=== PATIENT | female | born 1970 | race Caucasian/White ===

== ENCOUNTER → 2020-08-08 14:24 | Outpatient (BNVA) | payer BC, SELFPAY | PROVIDERS: PCP Physician Assistant; Visit Provider Surgery Vascular Surgery | DX: Z76.89 Persons encountering health services in other specified circumstances (principal) ==

== ENCOUNTER 2020-08-19 08:10 | Outpatient (REF) | payer BC, SELFPAY ==
--- NOTE | 2020-08-19 08:14 | US_ITS ---
EXAMINATION: RIGHT and LEFT LOWER EXTREMITY VENOUS ULTRASOUND (Reflux Exam) CLINICAL INDICATION: leg pain and varicose veins. COMPARISON: None. TECHNIQUE: Color flow triplex imaging and compression Doppler was performed to evaluate both the deep and the superficial systems bilaterally. To evaluate the superficial system, the examination was performed in the upright position. Color-flow Doppler ultrasound and compression ultrasound were utilized. In addition, maneuvers were utilized to demonstrate reflux. FINDINGS: 1. DEEP VENOUS ULTRASOUND OF THE RIGHT LOWER EXTREMITY: Respiratory variation, normal compression and augmented flow are noted in the right common femoral vein as well as the right popliteal vein and there is no evidence of deep venous thrombosis at these locations. There is no evidence of reflux in the deep system in either the common femoral vein or the popliteal vein. There is no evidence of a Cervantes's cyst. 2. SUPERFICIAL ULTRASOUND WITH DOPPLER OF RIGHT LOWER EXTREMITY: The right great saphenous vein at the saphenofemoral junction measures 8 mm, at the mid thigh 5 mm, epplo-qoa-fkey 5 mm, aphmv-gzv-gtvl 5 mm, at mid calf 6 mm and at the ankle measures 3 mm. There is diffuse greater saphenous vein reflux measuring maximum 3.6 seconds in the mid thigh and at the knee. The right small saphenous vein measures 2 mm and shows no reflux. There are varicosities in the calf that measure 4 mm and demonstrate up to 3.3 seconds reflux. 3. DEEP VENOUS ULTRASOUND OF THE LEFT LOWER EXTREMITY: Respiratory variation, normal compression and augmented flow are noted in the left common femoral vein as well as the left popliteal vein and there is no evidence of deep venous thrombosis at these locations. There is no evidence of reflux in the deep system in either the common femoral vein or the popliteal vein. . There is no evidence of a Cervantes's cyst. 4. SUPERFICIAL ULTRASOUND WITH DOPPLER OF LEFT LOWER EXTREMITY: Left great saphenous vein at the saphenofemoral junction measures 6 mm, at the mid thigh 3 mm, lpnbh-awd-gzfo 3 mm, ppcld-rxe-oicc 2 mm, at mid calf 2 mm and at the ankle measures 2 mm. There is no reflux demonstrated in the left great saphenous vein. There is an accessory lateral greater saphenous vein that measures between 5 and 7 mm and demonstrates 2.1 to 2.4 seconds reflux. The left small saphenous vein measures 2 mm and shows no reflux. There are varicosities arising from the accessory saphenous vein in the lateral thigh, at the knee and proximal calf that measure 5, 6 and 3 mm and demonstrate 2.4, 3 and 2.2 seconds reflux. US/US venous duplex LE BI IMPRESSION: 1. No evidence of reflux or thrombus in the common femoral veins or popliteal veins bilaterally. 2. Extensive right greater saphenous vein reflux. No left greater saphenous vein reflux seen. Reflux in an accessory lateral greater saphenous vein and varicosities that communicate with the left accessory lateral greater saphenous vein demonstrate reflux.
== END 2020-08-19 08:11 | disposition home or self-care (01) ==
LOC: HO.US 08:10
PROVIDERS: Visit Provider Surgery Vascular Surgery
DX: I83.893 Varicose veins of bilateral lower extremities with other complications (principal); M79.605 Pain in left leg; M79.604 Pain in right leg
CPT/HCPCS: 93970

== ENCOUNTER → 2020-10-03 08:48 | Outpatient (BNVA) | payer BC, SELFPAY | PROVIDERS: PCP Physician Assistant; Visit Provider Surgery Vascular Surgery ==

== ENCOUNTER 2021-03-26 16:41 | Outpatient (REF) | payer BC, SELFPAY ==
[2021-03-26 17:44] LABS: Glucose Urine UA NEG (NEG); Leukocyte Esterase Urine NEG (NEG); Nitrite Urine NEG (NEG); Urine Blood NEG (NEG); Urine Ketones NEG (NEG); Urine Protein TRACE MG/DL (NEG-TRACE)
[2021-03-26 17:48] LABS: Appearance Urine CLEAR; Color Urine YELLOW
== END 2021-03-26 16:42 | disposition home or self-care (01) ==
LOC: HO.LAB 16:41
PROVIDERS: PCP Physician Assistant; Visit Provider Physician Assistant
DX: R30.0 Dysuria (principal)
CPT/HCPCS: 81003

== ENCOUNTER 2021-06-10 12:59 | Outpatient (REF) | payer BC, SELFPAY ==
[2021-06-10 13:32] LABS: Hematocrit 36.8 % (37-47); Hemoglobin 11.6 g/dl (12.0-16.0); Mean Corpuscular HGB Conc 31.5 g/dl (31.0-35.0); Mean Corpuscular Hemoglobin 29.5 pg (27.0-33.0); Mean Corpuscular Volume 93.6 fL (80-98); Mean Platelet Volume 9.5 fL (9.4-12.3); Platelet Count 274 X10*3/uL (160-400); Red Blood Count 3.93 X10*6/uL (4.20-5.50); Red Cell Distribution Width 13.6 % (11.0-16.0); White Blood Count 8.8 X10*3/uL (4.8-10.8)
[2021-06-10 13:50] LABS: Appearance Urine HAZY; Color Urine YELLOW; Glucose Urine UA NEG (NEG); Leukocyte Esterase Urine NEG (NEG); Nitrite Urine NEG (NEG); Specific Gravity - Urine >= 1.030 (1.005-1.025); Urine Blood NEG (NEG); Urine Ketones NEG (NEG); Urine Protein NEG (NEG-TRACE)
[2021-06-10 14:02] LABS: Alanine Aminotransferase 10 U/L (0-31); Albumin Level 4.5 g/dL (3.5-5.0); Alkaline Phosphatase 88 U/L (39-117); Anion Gap 12 (12-20); Aspartate Amino Transferase 17 U/L (5-31); Bilirubin Total 0.5 mg/dL (0.0-1.0); Blood Urea Nitrogen 15 mg/dL (9-16); Calcium 9.5 mg/dL (8.4-10.2); Carbon Dioxide 28 mmol/L (22-29); Chloride 105 mmol/L (96-108); Cholesterol 178 mg/dL; Estimated Glomerular Filt Rate > 60; Glucose Fasting 95 mg/dL (60-99); HDL Cholesterol 55 mg/dL; LDL Cholesterol Calculated 104 mg/dl; Potassium 4.8 mmol/L (3.3-5.1); Sodium 140 mmol/L (135-145); Total Protein 7.7 g/dL (6.5-8.0); Triglycerides 95 mg/dL
[2021-06-10 14:28] LABS: TSH reflex Free T4 1.59 uIU/mL (0.32-4.0)
== END 2021-06-10 13:00 | disposition home or self-care (01) ==
LOC: HO.LAB 12:59
PROVIDERS: PCP Physician Assistant; Visit Provider Physician Assistant
DX: Z13.220 Encounter for screening for lipoid disorders (principal); Z13.29 Encounter for screening for other suspected endocrine disorder; R30.0 Dysuria; I10 Essential (primary) hypertension
CPT/HCPCS: 36415; 80053; 80061; 81003; 84443; 85027

== ENCOUNTER 2021-08-06 08:02 | Outpatient (REF) | payer BC, SELFPAY ==
--- NOTE | ~2021-08-06 | MM_ITS ---
EXAMINATION: MM SCREENING DIGITAL BREAST TOMOSYNTHESIS, BILATERAL CLINICAL INFORMATION: Screening. Asymptomatic. The lifetime risk of breast cancer based on the Tyrer-Cuzick Model is 8%. COMPARISON: Mammography: 11/23/2016, 07/05/2015, 04/05/2014 TECHNIQUE: Digital breast tomosynthesis is performed in both the craniocaudal and mediolateral oblique views along with computer-aided detection (CAD). Synthesized 2D images are generated from the tomosynthesis. FINDINGS: There are scattered areas of fibroglandular density (ACR BI-RADS breast composition Category b). There are no significant masses, abnormal calcifications, or other abnormalities. Parenchymal pattern is similar to prior studies. Small nodular asymmetric density mid 9:00 right breast is decreased in size since 2015. No developing density in either breast. The skin contours are smooth. MM/MM tomosynthesis screening BI IMPRESSION: No mammographic evidence of malignancy. ASSESSMENT: BI-RADS 2: Benign RECOMMENDATION: Routine annual mammography screening. This patient's information was entered into a reminder system with a target due date for their next mammogram.
== END 2021-08-06 08:03 | disposition home or self-care (01) ==
LOC: HO.MAMMO 08:02
PROVIDERS: Visit Provider Physician Assistant
DX: Z12.31 Encounter for screening mammogram for malignant neoplasm of breast (principal)
CPT/HCPCS: 77063; 77067

== ENCOUNTER 2022-08-12 07:54 | Outpatient (REF) | payer BC, SELFPAY ==
--- NOTE | ~2022-08-12 | MM_ITS ---
EXAMINATION: MM SCREENING DIGITAL BREAST TOMOSYNTHESIS, BILATERAL CLINICAL INFORMATION: Screening. Asymptomatic. The lifetime risk of breast cancer based on the Tyrer-Cuzick Model is 6%. COMPARISON: Mammography: 08/06/2021, 11/23/2016, 07/05/2015 TECHNIQUE: Digital breast tomosynthesis is performed in both the craniocaudal and mediolateral oblique views along with computer-aided detection (CAD). Synthesized 2D images are generated from the tomosynthesis. FINDINGS: There are scattered areas of fibroglandular density (ACR BI-RADS breast composition Category b). There are no significant masses, abnormal calcifications, or other abnormalities. Parenchymal pattern is similar to prior studies. There is no developing density or architectural abnormality. The axilla and skin contours are unremarkable. No significant changes. MM/MM tomosynthesis screening BI IMPRESSION: No mammographic evidence of malignancy. ASSESSMENT: BI-RADS 1: Negative RECOMMENDATION: Routine annual mammography screening. This patient's information was entered into a reminder system with a target due date for their next mammogram.
[2022-08-12 08:57] LABS: Hematocrit 37.9 % (37.0-47.0); Hemoglobin 11.9 g/dl (12.0-16.0); Mean Corpuscular HGB Conc 31.4 g/dl (31.0-35.0); Mean Corpuscular Hemoglobin 29.5 pg (27.0-33.0); Mean Platelet Volume 9.9 fL (9.4-12.3); Platelet Count 267 X10*3/uL (160-400); Red Blood Count 4.03 X10*6/uL (4.20-5.50); Red Cell Distribution Width 13.6 % (11.0-16.0)
[2022-08-12 10:02] LABS: Alanine Aminotransferase 14 U/L (0-31); Albumin Level 4.5 g/dL (3.5-5.0); Alkaline Phosphatase 77 U/L (39-117); Anion Gap 12 (12-20); Aspartate Amino Transferase 18 U/L (5-31); Bilirubin Total 0.5 mg/dL (0.0-1.0); Blood Urea Nitrogen 15 mg/dL (9-16); Carbon Dioxide 29 mmol/L (22-29); Chloride 106 mmol/L (96-108); Cholesterol 189 mg/dL; Estimated Glomerular Filt Rate > 60; Glucose Fasting 100 mg/dL (60-99); HDL Cholesterol 53 mg/dL; LDL Cholesterol Calculated 112 mg/dl; Potassium 5.1 mmol/L (3.3-5.1); Rheumatoid Factor < 13.0 IU/mL (<15.0); Sodium 142 mmol/L (135-145); TSH reflex Free T4 5.18 uIU/mL (0.32-4.0); Total Protein 7.5 g/dL (6.5-8.0); Triglycerides 122 mg/dL
[2022-08-12 10:36] LABS: Free T4 (Free Thyroxine) 0.92 ng/dL (0.71-1.85)
[2022-08-14 12:58] LABS: Cyclic Citrullinated Peptide <16 UNITS
[2022-08-14 15:54] LABS: Anti Nuclear Antibody Screen NEGATIVE (NEGATIVE)
== END 2022-08-12 07:55 | disposition home or self-care (01) ==
LOC: HO.MAMMO 07:54
PROVIDERS: PCP Physician Assistant; Visit Provider Physician Assistant
DX: Z12.31 Encounter for screening mammogram for malignant neoplasm of breast (principal); Z13.29 Encounter for screening for other suspected endocrine disorder; Z13.220 Encounter for screening for lipoid disorders; M79.641 Pain in right hand; M79.642 Pain in left hand
CPT/HCPCS: 36415; 77063; 77067; 80053; 80061; 84439; 84443; 85027; 86038; 86039; 86200; 86431

== ENCOUNTER 2023-02-18 14:00 | Outpatient (REF) | payer BC, SELFPAY ==
--- NOTE | ~2023-02-18 | XR_ITS ---
EXAMINATION: XR CHEST CLINICAL INFORMATION: Dermatitis COMPARISON: 07/23/2010 report TECHNIQUE: 2 views of the chest were obtained. FINDINGS: Heart, mediastinum, pulmonary vessels within normal limits. Biapical pleural thickening identified. Minimal left base atelectasis. No consolidations or effusions. Bony structures are intact. XR/XR chest 2V IMPRESSION: Minimal left base atelectasis otherwise no acute cardiopulmonary disease.
[2023-02-18 14:35] LABS: MANUAL DIFF FLAG NO
[2023-02-18 15:18] LABS: Basophils Percent Auto 0.3 % (0-2); Eosinophils Absolute Auto 0.1 X10*3/uL (0.0-0.4); Eosinophils Percent Auto 1.9 % (0-4); Hematocrit 35.9 % (37.0-47.0); Hemoglobin 11.5 g/dl (12.0-16.0); Imm Gran Abs Auto 0.01 X10*3/uL (0.00-0.03); Imm Gran Pct Auto 0.2 % (0.0-0.4); Lymphocytes Absolute Auto 2.9 X10*3/uL (1.2-4.9); Lymphocytes Percent Auto 50.3 % (20-40); Mean Corpuscular Hemoglobin 30.1 pg (27.0-33.0); Mean Platelet Volume 10.2 fL (9.4-12.3); Monocytes Absolute Auto 0.4 X10*3/uL (0.1-1.2); Monocytes Percent Auto 7.2 % (2-11); Neutrophils Absolute Auto 2.3 x10*3/uL (2.0-8.3); Neutrophils Percent Auto 40.1 % (45-73); Platelet Count 261 X10*3/uL (160-400); Red Blood Count 3.82 X10*6/uL (4.20-5.50); Red Cell Distribution Width 14.2 % (11.0-16.0); White Blood Count 5.8 X10*3/uL (4.8-10.8)
[2023-02-18 15:54] LABS: Alanine Aminotransferase 12 U/L (0-31); Albumin Level 4.4 g/dL (3.5-5.0); Alkaline Phosphatase 67 U/L (39-117); Anion Gap 12 (12-20); Aspartate Amino Transferase 19 U/L (5-31); Bilirubin Total 0.6 mg/dL (0.0-1.0); Blood Urea Nitrogen 9 mg/dL (9-16); C Reactive Protein 0.53 mg/dL (< or = 0.50); Calcium 9.9 mg/dL (8.4-10.2); Carbon Dioxide 27 mmol/L (22-29); Chloride 105 mmol/L (96-108); Estimated Glomerular Filt Rate > 60; Glucose Random 91 mg/dL (60-115); Potassium 4.6 mmol/L (3.3-5.1); Sodium 139 mmol/L (135-145); Total Protein 8.1 g/dL (6.5-8.0)
[2023-02-18 15:57] LABS: Erythrocyte Sedimentation Rate 23 MM/HR (0-20)
[2023-02-18 16:10] LABS: Appearance Urine Clear; Color Urine Yellow; Glucose Urine UA Negative (Negative); Leukocyte Esterase Urine Large (3+) (Negative); Nitrite Urine Negative (Negative); Specific Gravity - Urine 1.015 (1.005-1.025); UMIC TRIGGER UA YES; Urine Blood Negative (Negative); Urine Ketones Negative (Negative); Urine Protein Negative (Neg-Trace)
[2023-02-18 16:30] LABS: Bacteria Urine 1+ (None Seen); Hyaline Casts Urine 0-2 /LPF (0-2); RBC Urine 0-2 /HPF (0-2); WBC Urine 21-50 /HPF (0-5)
[2023-02-20 17:03] LABS: TS Negative Control Passed; TS Panel A 0; TS Panel B 0; TS Positive Control Passed; TSpotTB Negative (Negative)
[2023-02-25 13:23] LABS: Angiotensin Converting Enzyme 27 U/L (9-67)
== END 2023-02-18 14:01 | disposition home or self-care (01) ==
LOC: HO.XRAY 14:00
PROVIDERS: PCP Physician Assistant; Visit Provider Physician Assistant
DX: L30.8 Other specified dermatitis (principal)
CPT/HCPCS: 36415; 71046; 80053; 81001; 82164; 85025; 85652; 86140; 86481

== ENCOUNTER 2023-04-19 12:53 | Outpatient (REF) | payer BC, SELFPAY ==
[2023-04-19 18:42] LABS: CT PCR NOT DETECTED (Not Detect.); NG PCR NOT DETECTED (Not Detect.)
[2023-04-20 09:28] LABS: BV Int Neg Control Negative (Negative); BV Int Pos Control Positive (Positive)
[2023-04-21 21:28] LABS: HPV mRNA E6/E7 rflx Not Detected (Not Detected)
== END 2023-04-19 12:54 | disposition home or self-care (01) ==
LOC: HO.LNP 12:53
PROVIDERS: PCP Physician Assistant; Visit Provider Advanced Practice Midwife
DX: Z01.419 Encounter for gynecological examination (general) (routine) without abnormal findings (principal); Z11.51 Encounter for screening for human papillomavirus (HPV); Z20.2 Contact with and (suspected) exposure to infections with a predominantly sexual mode of transmission
CPT/HCPCS: 0353U; 87480; 87510; 87624; 87660; 88142

== ENCOUNTER 2023-04-19 12:53 | Outpatient (AMB) | payer BC, SELFPAY ==
--- NOTE | 2023-04-19 13:03 | A.OFFVIS_ITS ---
Intake Vital Signs 04/19/23 13:04 Height 5 ft 3 in Weight 172 lb BMI 30.5 BP 102/70 Intake Visit Reasons: New patient Annual Intake Note: trouble holding urine when sneezing Cell Tuber Hand Required: No Information Interpreted: non-clinical & clinical [employer]: [employer] Present (Sondra) Allergies No Known Allergies Allergy (Unknown, Verified 04/19/23 13:06) NOT APPLICABLE Medication List - Last Reconciled 04/19/23 by Alanna Lopez CNM gabapentin (Neurontin) 100 mg PO BEDTIME ibuprofen 800 mg PO Q8H PRN 15 days levothyroxine 25 mcg PO DAILY 30 days mupirocin 2% 1 appl topical BID 7 days valacyclovir 500 mg PO Q12H PRN 7 days Is last menstrual period known: No Post menopausal: Yes HPI New patient Annual HPI Details 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 She thinks it was 2009 and it was at [facility] she had 1 baby at [place] and 1 at [facility]. Her 1st child was born in 1995 at [place]. All 3 children were vaginal births she does not recall any abnormal Paps but she does remember something about vaginal warts. She recently was seen a couple of times by this painful lesion under her left labia that really burned and then tingled and was diagnosed as herpetic. It did not get better and she went to dermatology and was given a steroid cream but still has a carolee from it. She is sexually active with her she has not had a period for at least 7 years. Not worried about any STIs after discussion decided to accept cultures along with the Pap. She recently had a mammogram. [facility] Medical History DVT (deep venous thrombosis) Surgical History Tear of meniscus of right knee Family History Father Diabetes Mother Diabetes Brother No problems noted. Brother No problems noted. Brother No problems noted. Son No problems noted. Daughter No problems noted. Daughter No problems noted. Social History (Reviewed 04/19/23 @ 13:07 by AUGUSTINE Singh Housing: House Alcohol intake: current Alcohol intake frequency: holidays/special occasions only Patient Tobacco Use Status: Never used Tobacco e-Cigarette/Vaping Use: Never Used Second Hand Smoke Exposure: No service: No Current occupational status: employed Current occupation: [employer]ics Current occupational exposures/hazards: No Cognitive needs: No Hearing needs: No Vision needs: No Female Reproductive History Menstrual Age of Menarche: 13 control method: none Total pregnancies: 3 Full term: 3 Number of Living Children: 3 Date of last pap smear: 11/15/09 (negative) Date of Mammogram: 08/12/22 Physical Exam Vital Signs: BMI result Body Mass Index 30.5 Const General: healthy appearing, comfortable, no acute distress, well developed and alert Nutritional Appearance: average body habitus Orientation/consciousness: patient oriented x3 Limitations: no limitations HEENT Head: Yes normocephalic Neck Neck: Yes normal visual inspection Chest Chest palpation & inspection: normal inspection of the chest Breast/axilla inspection: normal inspection of the breasts and normal inspection of the axillae Breast/axilla palpation: normal palpation of the breasts and normal palpation of the axillae Resp Effort & Inspection: normal respiratory effort GI Inspection: Yes normal to inspection, No Abdominal wall edema and No distended Palpation (GI): Soft to palpation and nontender General: Yes bladder normal to palpation External Female Exam: normal external appearance and normal appearance of the urethra Speculum Exam - Vagina: normal appearance of the vagina, normal palpation and normal vaginal discharge Speculum Exam - Cervix: normal appearance of the cervix, normal palpation and nontender Bimanual exam- vagina & uterus: normal bimanual exam, normal palpation, uterine size normal, bladder normal to palpation, consistency normal, normal palpation, uterine mobility normal, uterine shape normal, No Cervical tenderness present, non-tender and no cervical motion tenderness Bimanual Exam- Adnexa, other: normal adnexae, no masses, normal and No adnexal tenderness Neuro General: patient oriented x3 Assessment & Plan Assessment & Plan (1) Cervical cancer screening: Comment: Previous Pap 2009... Code(s): Z12.4 - Encounter for screening for malignant neoplasm of cervix (2) Breast cancer screening: Code(s): Z12.39 - Encounter for other screening for malignant neoplasm of breast Qualifiers: Breast cancer screening modality: mammogram Qualified Code(s): Z12.31 - Encounter for screening mammogram for malignant neoplasm of breast (3) Stress incontinence: Comment: Kegel's reviewed and info about PT given. Code(s): N39.3 - Stress incontinence (female) (male) (4) Well woman exam with routine gynecological exam: Code(s): Z01.419 - Encounter for gynecological examination (general) (routine) without abnormal findings Plan -----Discussed in this visit the following: healthy balanced diet, regular and consistent exercise, getting recommended health screens, doing the best she can for her particular health concerns, kegel exercises, pap smear screening and followup recommendations, mammography screening and SBE, normal changes in cycles in her life stage--- .---I Had the patient and demonstrate a Kegel contraction at the end of the exam, ordered in order to explain a Kegel exercise, and instructed the patient on doing the same exercises several times a day with increasing strength each time. One useful to is to imagine pursestring around the vagina and pulling it tight and upwards as if raising the vagina, or imagining that her tight muscles are on the 1st floor and she is trying to pull them up to the 5th floor and then slowly letting them go down. To try to do these several times a day but focus on the quality and the strength of the exercises more than the quantity, and tried isolate just those muscles and not involve other body parts. I gave her information both written and I also gave her information about the PT that is available should she decide she wants. She was undecided at this time. Discussed the usual parameters for Pap smear screening in this age group would be every 5 though because she has been so many years without 1 she might want another 1 in 3 years rather than waiting a full 5. Discussed her herpetic lesion over her lip and how sometimes they can leave a carolee and take time to heal. Discussed that it is most likely consistent with herpes given her symptoms and the natural history of it. She has a prescription for Valtrex should she need to take it again. She may want to follow-up with Dermatology as well especially if she is concerned about other lesions. She does have significant sun exposure. Orders: Orders Bacterial Vaginosis Panel Today Z01.419 - Encounter for gynecological examination (general) (routine) without abnormal findings CT NG by PCR Today Z01.419 - Encounter for gynecological examination (general) (routine) without abnormal findings Pap Smear Today Z01.419 - Encounter for gynecological examination (general) (routine) without abnormal findings Coding Level of Care Code New Pt Prev Care 40-64y([id number]) Diagnoses Cervical cancer screening Z12.4 Breast cancer screening Z12.31 Breast cancer screening modality: mammogram Stress incontinence N39.3 Well woman exam with routine gynecological exam Z01.419
[2023-04-19 13:04] VITALS: BP 102/70; BMI 30.5
== END 2023-04-19 13:47 | disposition home or self-care (01) ==
LOC: HO.HWS 12:53
PROVIDERS: PCP Physician Assistant; Visit Provider Advanced Practice Midwife
DX: Z01.419 Encounter for gynecological examination (general) (routine) without abnormal findings (principal); Z12.4 Encounter for screening for malignant neoplasm of cervix; Z12.31 Encounter for screening mammogram for malignant neoplasm of breast; N39.3 Stress incontinence (female) (male)
CPT/HCPCS: 99386

== ENCOUNTER 2023-08-18 07:28 | Outpatient (REF) | payer BC, SELFPAY | END 2023-08-18 07:29 | disposition home or self-care (01) | LOC: HO.MAMMO 07:28 | PROVIDERS: PCP Physician Assistant; Visit Provider Physician Assistant | DX: Z12.31 Encounter for screening mammogram for malignant neoplasm of breast (principal) | CPT/HCPCS: 77063; 77067 ==

== ENCOUNTER → 2023-08-18 07:45 | Outpatient (BNV) | payer BC, SELFPAY | PROVIDERS: PCP Physician Assistant; Visit Provider Radiology Diagnostic Radiology | DX: Z12.31 Encounter for screening mammogram for malignant neoplasm of breast (principal) | CPT/HCPCS: 77063; 77067 ==

== ENCOUNTER 2023-09-28 15:45 | Outpatient (AMB) | payer BC, SELFPAY ==
[2023-09-28 15:58] VITALS: BP 108/66; PULSE 60; O2SAT 97; BMI 30.3
--- NOTE | 2023-09-28 15:58 | MHC.PC.OV ---
Vital Signs 09/28/23 15:58 Height 5 ft 3 in Weight 171 lb 2 oz BMI 30.3 BP 108/66 Blood Pressure Location Lt brachial Position Sitting Pulse 60 Pulse Source Pulse Oximeter Pulse Oximetry (%) 97 Oxygen Delivery Method Room Air Intake Visit Reasons: Annual Exam Intake Note: Patient is here today for a physical. 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 Accompanied by: Self / Same As Patient Allergies No Known Allergies Allergy (Unknown, Verified 09/28/23 16:14) NOT APPLICABLE Medication List - Last Reconciled 09/28/23 by Yariel Kapoor PA-C ibuprofen 800 mg PO Q8H PRN 15 days levothyroxine 25 mcg PO DAILY 30 days mupirocin 2% 1 appl topical BID 7 days valacyclovir 500 mg PO Q12H PRN 7 days Tobacco use date assessed: 09/28/23 Dental Screening Dental Screen Date: 09/28/23 Did you have a dental visit in the last 12 months?: Yes Did you have a dental problem in the last 6 months where you did not have access to dental care?: No Was dental information given to patient?: Patient has dentist HPI Annual Exam HPI Details Patient is? 53 year year old female here today for routine annual physical. Patient does have history of a provoked DVT right lower calf, hypothyroidism, Hypothyroid: Has been found to have an elevated TSH. Has been started on levothyroxine 25 mcg. Will recheck TSH to assure normal and make live of thyroxine dose adjustments. Vaccines: UTD with COVID Vac,? 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 Brother No problems noted. Brother No problems noted. Son No problems noted. Daughter No problems noted. Daughter No problems noted. 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 1. Little interest or pleasure in doing things: not at all 2. Feeling down, depressed, or hopeless: not at all 3. Trouble falling or staying asleep, or sleeping too much: not at all 4. Feeling tired or having little energy: not at all 5. Poor appetite or overeating: not at all 6. Feeling bad about yourself - or that you are a failure or have let yourself or your family down: not at all 7. Trouble concentrating on things, such as reading the newspaper or watching television: not at all 8. Moving or speaking so slowly that other people could have noticed. Or the opposite - being so fidgety or restless that you have been moving around a lot more than usual: not at all 9. Thoughts that you would be better off or of hurting yourself in some way: not at all Total score: 0 Depression Screening Interpretation: Negative Depression Screening Done: Yes 97668 - PHQ-9 Billing: Yes Source: Developed by Drs. Delfin Velez, Justa Vaughan, Fahad Solorzano and colleagues, with an educational sylvain from [employer]. Thrive Questionnaire Date Thrive assessed: 09/28/23 I am a: Patient What is your living situation today?: I have a steady place to live Within the past 12 months, did the food you bought not last and you didn't have the money to get more?: Never true Within the past 12 months, did you worry whether your food would run out before you got money to buy more?: Never true Do you have trouble paying for medicines?: No Do you have trouble getting transportation to medical appointments?: No Do you have trouble paying your heating and electricity bill?: No Do you have trouble taking care of your child, family member or friend?: No Do you have trouble with day-to-day activities such as bathing, preparing meals, shopping, managing finances, etc.?: No Are you currently unemployed and looking for a job?: No Are you interested in more education?: No Please select the resources that you would like help with: None Currently or been in a relationship where the following occur: no concerns reported THRIVE Score: 0 AUDIT C Alcohol Use Questionnaire (AUDIT-C) 1. How often do you have a drink containing alcohol?: Monthly or less 2. How many drinks containing alcohol do you have on a typical day when you are drinking?: 1 or 2 Total Score: 1 INES-7 AMB Questionnaire INES-7 Date INES - 7 assessed: 09/28/23 Feeling nervous, anxious, or on edge: 0 = Not at all Not being able to stop or control worryin = Not at all Worrying too much about different things: 0 = Not at all Trouble relaxin = Not at all Being so restless that it is hard to sit still: 0 = Not at all Becoming easily annoyed or irritable: 0 = Not at all Feeling afraid as if something awful might happen: 0 = Not at all Total INES-7 score (0-4 normal; 5-9 mild; 10-14 moderate; 15-21 severe): 0 Source: Developed by Drs. Delfin Velez, Justa Vaughan, Fahad Solorzano and colleagues, with an educational sylvain from [employer]. INES-7 Assessment Billing INES-7 Assessment Tool: INES-7 Assessment 41868 Review of Systems Const Denies body aches, Denies chills, Denies excessive sweating, Denies fatigue, Denies fever(s) and Denies headache(s) Eyes Denies blurry vision ENT Denies dysphagia, Denies vertigo, Denies dizziness, Denies headache(s), Denies hearing loss and Denies tinnitus Card Denies chest pain, Denies chest pain with activity, Denies syncope, Denies irregular heart rhythm and Denies dyspnea Resp Denies chest congestion, Denies cough, Denies hemoptysis, Denies dyspnea and Denies wheezing GI Denies abdominal pain, Denies melena, Denies hematochezia, Denies coffee ground emesis, Denies dysphagia, Denies diarrhea, Denies nausea and Denies vomiting Denies urinary frequency, Denies dysuria, Denies urinary hesitancy and Denies urinary urgency Musc Denies arthralgias, Denies limited range of motion, Denies muscle cramps and Denies muscle weakness Skin/Breast Denies rash and Denies skin ulcer Neuro Denies Abnormal speech present, Denies confusion, Denies vertigo, Denies dizziness, Denies syncope, Denies headache(s), Denies memory loss and Denies seizure-like activity Psych Denies anxiety, Denies confusion, Denies depression, Denies memory loss, Denies panic attacks and Denies paranoia Endo Denies excessive sweating, Denies fatigue, Denies flushing, Denies polydipsia and Denies polyuria Aller/Immun Denies wheezing Physical exam (Primary Care) Vital Signs: Last Vital Signs Pulse 60 09/28/23 15:58 BP 108/66 09/28/23 15:58 Pulse Ox 97 09/28/23 15:58 Oxygen Delivery Method Room Air 09/28/23 15:58 BMI result Body Mass Index 30.3 Tobacco/Smoking Status: Tobacco use Status Tobacco use date assessed 09/28/23 09/28/23 16:05 Patient Tobacco Use Status Never used Tobacco 09/28/23 16:04 Tobacco use type 06/16/22 08:48 e-Cigarette/Vaping Use Never Used 09/28/23 16:04 PHQ-9: PHQ-9 Score PHQ-9: Total score 0 09/28/23 16:08 Depression Screening Interpretation: Negative Thrive Assessment: Date of Thrive Assessment Date Thrive assessed 09/28/23 09/28/23 16:08 Currently or been in a relationship where the following occur: no concerns reported Const General: cooperative, comfortable, no acute distress, alert and awake; No confusion Orientation/consciousness: oriented to person, oriented to place, patient oriented x3 and No confusion HENMT Head: Yes normocephalic Ears: external ears normal and TM's normal bilaterally Face and sinus: No sinus tenderness Mouth: Normal oral and palatal mucosa present and tongue normal Teeth and gingiva: dentition normal and gingiva normal Throat: Yes posterior oropharynx normal, Yes tonsils normal and Yes uvula midline Eyes Conjunctivae: conjunctivae normal Sclerae: sclerae normal Pupils: Equal, round and reactive pupils present EOM: EOMs intact bilaterally Direct Ophthalmoscopy: No no photophobia Neck Neck: Yes no lymphadenopathy, No tender and Yes no JVD Thyroid: Thyroid normal Carotids: no bruits Chest Chest palpation & inspection: no tenderness Resp Effort & Inspection: normal respiratory effort, no audible wheezes, not labored and no stridor Auscultation: no crackles, no rales, no rhonchi and no wheezes Cardio Jugular venous distension: no JVD Rate: regular rate, not bradycardic and not tachycardic Rhythm: regular rhythm Bruits: no carotid bruits Peripheral pulses: Peripheral pulses 2+ throughout GI Inspection: Yes normal to inspection, No abdominal wall ecchymosis and No visible herniation Palpation (GI): Soft to palpation, nontender, no guarding, not rigid and No hepatosplenomegaly present Auscultation: normoactive bowel sounds General: Yes no CVA tenderness Back/Spine/Pelvis Back: no CVA tenderness and No back tenderness Cervical Spine: cervical ROM normal Thoracic/Lumbar Spine: thoracic and lumbar spine normal to inspection, straight leg raise negative bilaterally, No thoraco-lumbar ROM limited and No lumbar spinal tenderness Skin Lesions: no lesions Rashes: no rashes Wounds: no wounds Neuro General: oriented to person, oriented to place, patient oriented x3, CN's II-XI intact bilaterally and No confusion Cranial nerves: Yes Equal, round and reactive pupils present and Yes Normal accommodation reflex present Cognition (Neuro): normal cognition Speech: No Abnormal speech present Gait exam (Neuro): Normal gait present Motor exam (neuro): 5/5 motor strength present throughout Extrem Right upper extremity: full ROM; no cyanosis Left upper extremity: full ROM; no cyanosis Right lower extremity: no edema Left lower extremity: no edema Psych Appearance: grossly normal Mental Status: mental status grossly normal Affect: normal affect Attitude: cooperative Thought process: Normal thought process present Assessment and Plan Assessment & Plan (1) Annual physical exam: Code(s): Z00.00 - Encounter for general adult medical examination without abnormal findings (2) Hypothyroid: Code(s): E03.9 - Hypothyroidism, unspecified Qualifiers: Hypothyroidism type: unspecified Qualified Code(s): E03.9 - Hypothyroidism, unspecified Plan: Has hypothyroidism. Has been on levothyroxine 25 mcg. Has not noticed much weight loss. Will recheck TSH to assure normal and make levothyroxine dose adjustments accordingly. (3) DVT (deep venous thrombosis): Code(s): I82.409 - Acute embolism and thrombosis of unspecified deep veins of unspecified lower extremity Qualifiers: DVT location: lower extremity Affected thrombotic vein of extremity: unspecified vein of extremity Chronicity: unspecified Laterality: right Qualified Code(s): I82.401 - Acute embolism and thrombosis of unspecified deep veins of right lower extremity Plan: Has a history of DVT many years ago, has resolved Orders: Orders TSH reflex Free T4 Today E03.9 - Hypothyroidism, unspecified TSH reflex Free T4 Today E03.9 - Hypothyroidism, unspecified TSH reflex Free T4 Today E03.9 - Hypothyroidism, unspecified TSH reflex Free T4 Today E03.9 - Hypothyroidism, unspecified TSH reflex Free T4 Today E03.9 - Hypothyroidism, unspecified TSH reflex Free T4 Today E03.9 - Hypothyroidism, unspecified TSH reflex Free T4 Today E03.9 - Hypothyroidism, unspecified Medications: Refilled valacyclovir 500 mg PO Q12H 7 days PRN 14 tabs 0RF skin irritation B00.9 - Herpesviral infection, unspecified Coding Level of Care Code Est Pt Prev Care 40-64y(59213) Diagnoses Annual physical exam Z00.00 Hypothyroidism, unspecified type E03.9 Hypothyroidism type: unspecified Deep vein thrombosis (DVT) of right lower extremity, unspecified chronicity, unspecified vein I82.401 DVT location: lower extremity Affected thrombotic vein of extremity: unspecified vein of extremity Chronicity: unspecified Laterality: right Additional Codes INES-7 Assessment Billing - INES-7 Assessment Tool: INES-7 Assessment [id number] ([id number])
== END 2023-09-28 16:33 | disposition home or self-care (01) ==
PROVIDERS: PCP Physician Assistant; Visit Provider Physician Assistant
DX: Z00.00 Encounter for general adult medical examination without abnormal findings (principal); E03.9 Hypothyroidism, unspecified; I82.401 Acute embolism and thrombosis of unspecified deep veins of right lower extremity
CPT/HCPCS: 99396

== ENCOUNTER 2023-09-30 09:11 | Outpatient (REF) | payer BC, SELFPAY ==
[2023-09-30 10:06] LABS: Hematocrit 37.8 % (37.0-47.0); Hemoglobin 12.2 g/dl (12.0-16.0); Mean Corpuscular HGB Conc 32.3 g/dl (31.0-35.0); Mean Corpuscular Volume 92.9 fL (80.0-98.0); Mean Platelet Volume 9.8 fL (9.4-12.3); Platelet Count 276 X10*3/uL (160-400); Red Blood Count 4.07 X10*6/uL (4.20-5.50); Red Cell Distribution Width 13.7 % (11.0-16.0); White Blood Count 5.6 X10*3/uL (4.8-10.8)
[2023-09-30 10:45] LABS: Alanine Aminotransferase 12 U/L (0-31); Albumin Level 4.7 g/dL (3.5-5.0); Alkaline Phosphatase 75 U/L (39-117); Anion Gap 12 (12-20); Aspartate Amino Transferase 19 U/L (5-31); Bilirubin Total 0.5 mg/dL (0.0-1.0); Blood Urea Nitrogen 18 mg/dL (9-16); Carbon Dioxide 30 mmol/L (22-29); Chloride 103 mmol/L (96-108); Estimated Glomerular Filt Rate > 60; Glucose Fasting 94 mg/dL (60-99); Potassium 4.9 mmol/L (3.3-5.1); Sodium 140 mmol/L (135-145); Total Protein 8.4 g/dL (6.5-8.0)
[2023-09-30 11:03] LABS: TSH reflex Free T4 2.48 uIU/mL (0.32-4.0)
== END 2023-09-30 09:12 | disposition home or self-care (01) ==
LOC: HO.LAB 09:11
PROVIDERS: PCP Physician Assistant; Visit Provider Physician Assistant
DX: Z13.1 Encounter for screening for diabetes mellitus (principal); E03.9 Hypothyroidism, unspecified
CPT/HCPCS: 36415; 80053; 84443; 85027

== ENCOUNTER 2024-02-23 15:28 | Outpatient (AMB) | payer BC, SELFPAY ==
[2024-02-23 15:40] VITALS: BP 106/72; PULSE 62; TEMP 37.1; O2SAT 97; BMI 30.3
--- NOTE | 2024-02-23 15:40 | AM.OFFWIN_ITS ---
Intake Vital Signs 02/23/24 15:40 Height 5 ft 3 in Weight 171 lb BMI 30.3 BP 106/72 Blood Pressure Location Lt brachial Position Sitting Pulse 62 Pulse Source Pulse Oximeter Temp 98.7 F Temp Source Oral Pulse Oximetry (%) 97 Oxygen Delivery Method Room Air Intake Visit Reasons: EP ?UTI Intake Note: pt is here for uti Patient Tobacco Use Status: Never used Tobacco Allergies No Known Allergies Allergy (Unknown, Verified 02/23/24 15:41) NOT APPLICABLE Do you need a note to return to daycare/school/sports/work: No HPI HPI Comments History of Present Illness Details 54 y/o female patient who presents to [facility] in clinic with c/o Urinary symptoms. Pt reports urinary frequency, urgency and dsyuria for few days now. [facility] Medical History DVT (deep venous thrombosis) Surgical History Tear of meniscus of right knee Family History Father Diabetes Mother Diabetes Brother No problems noted. Brother No problems noted. Brother No problems noted. Son No problems noted. Daughter No problems noted. Daughter No problems noted. 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 exposures/hazards: No Cognitive needs: No Hearing needs: No Vision needs: No Female Reproductive History Menstrual Age of Menarche: 13 Review of Systems Const All systems reviewed & are unremarkable except as noted in HPI and below Physical Exam Vital Signs: Last Vital Signs Temp 98.7 F 02/23/24 15:40 Pulse 62 02/23/24 15:40 BP 106/72 02/23/24 15:40 Pulse Ox 97 02/23/24 15:40 Oxygen Delivery Method Room Air 02/23/24 15:40 BMI result Body Mass Index 30.3 Const General: comfortable and no acute distress Orientation/consciousness: patient oriented x3 GI Palpation (GI): Soft to palpation, not firm, Tenderness to palpation present (GI) suprapubicly, no guarding, not rigid and No hepatosplenomegaly present Auscultation: normal bowel sounds Other: Pelvic/Vaginal exam deferred. General: Yes no CVA tenderness Back/Spine/Pelvis Back: no CVA tenderness Neuro General: patient oriented x3, gait normal and moves all extremities Psych Speech and movement: Normal speech and movement present Results AMB Urinalysis, Automated UA Leukoctes 70 Meka/uL Last Edit by Cristóbal Lockett CMA on 02/23/24 15:54 UA Nitrite Negative Last Edit by Cristóbal Lockett CMA on 02/23/24 15:54 UA Urobilinogen 0.2 mg/dL Last Edit by Cristóbal Lockett CMA on 02/23/24 15 :54 UA Protein 15 mg/dL Last Edit by Cristóbal Lockett CMA on 02/23/24 15:54 UA pH 6.0 Last Edit by Cristóbal Lockett CMA on 02/23/24 15:54 UA Blood 25 Emerson/uL Last Edit by Cristóbal Lockett CMA on 02/23/24 15:54 UA Specific [place] 1.025 Last Edit by Cristóbal Lockett CMA on 02/23/24 15:54 UA Ketone Negative Last Edit by Cristóbal Lockett CMA on 02/23/24 15:54 UA Bilirubin 0 mg/dL Last Edit by Cristóbal Lockett CMA on 02/23/24 15:54 UA Glucose 0 mg/dL Last Edit by Cristóbal Lockett CMA on 02/23/24 15:54 Results Reviewed Results Reviewed: Laboratory Last Values Urine pH (Auto) 6.0 02/23/24 15:54 Specific [place] (Auto) 1.025 02/23/24 15:54 Urine Protein (Auto) 15 mg/dL 02/23/24 15:54 Glucose (UA)(Auto) 0 mg/dL 02/23/24 15:54 Urine Ketones (Auto) Negative 02/23/24 15:54 Urine Blood (Auto) 25 Emerson/uL 02/23/24 15:54 Urine Nitrite (Auto) Negative 02/23/24 15:54 Urine Bilirubin (Auto) 0 mg/dL 02/23/24 15:54 Urine Urobilinogen (Auto) 0.2 mg/dL 02/23/24 15:54 Leukocyte Esterase (Auto) 70 Meka/uL 02/23/24 15:54 Assessment & Plan Assessment & Plan (1) Urinary tract infection symptoms: Code(s): R39.9 - Unspecified symptoms and signs involving the genitourinary system Plan: Hydrate well with plenty of water Take medication as directed. Orders: Orders AMB Urinalysis Automated Today Z13.9 - Encounter for screening, unspecified Medications: New nitrofurantoin monohyd/m-cryst 100 mg (Macrobid) must administer with a meal/food 100 mg PO Q12H 7 days 14 caps 0RF R39.9 - Unspecified symptoms and signs involving the genitourinary system Coding Level of Care Code Est Pt Level 3 (77689) Diagnoses Urinary tract infection symptoms R39.9 Time Spent (min) 15
== END 2024-02-23 16:18 | disposition home or self-care (01) ==
PROVIDERS: PCP Physician Assistant; Visit Provider Nurse Practitioner Family
DX: R30.0 Dysuria (principal)
CPT/HCPCS: 81003; 99213

== ENCOUNTER 2024-06-21 17:41 | Emergency (ER) | payer BC, SELFPAY ==
--- NOTE | ~2024-06-21 | XR_ITS ---
EXAMINATION: XR CHEST CLINICAL INFORMATION: Chest discomfort COMPARISON: Chest radiograph 02/18/2023 TECHNIQUE: Frontal view of the chest was obtained at 1814 hours. FINDINGS: No significant abnormality is noted involving the heart, lungs, mediastinum, bony thorax or soft tissues. XR/XR chest 1V IMPRESSION: Unremarkable examination. Electronically signed by: Jatinder Tinajero MD 06/21/2024 07:55 PM EDT RP
[2024-06-21 17:49] VITALS: BP 118/85; PULSE 76; RESP 16; TEMP 37.1; O2SAT 97
--- NOTE | 2024-06-21 18:00 | ECG_ITS ---
Test Reason : CHEST PAIN Blood Pressure : / mmHG Vent. Rate : 065 BPM Atrial Rate : 065 BPM P-R Int : 126 ms QRS Dur : 080 ms QT Int : 374 ms P-R-T Axes : 007 013 020 degrees QTc Int : 388 ms Normal sinus rhythm Cannot rule out Anteroseptal infarct , age undetermined Abnormal ECG When compared with ECG of 29-OCT-2009 19:36, Minimal criteria for Anteroseptal infarct are now Present Referred By: Bar Johnson Electronically Signed By:ARMAAN ARANGO
--- NOTE | 2024-06-21 18:03 | ED.CHESTPAIN ---
HPI - Chest Pain General Chief Complaint: Chest Pain Stated Complaint: Jaw pain, nausea, back pain Time Seen by Provider: 06/21/24 23:51 Source: patient and family Mode of arrival: ambulatory Limitations: no limitations History of Present Illness ED Provider: Dr. Almanza HPI narrative: Patient is a 54 yo female with history of hypothyroidism who presents with jaw pain for a few days saw her dentist and was told she grinds her teeth, no with episodes of back tightness and epigastric pain. Patient does not have any pain with exertion. She has had discomfort on and off for the past 2 days. She is under a lot of stress. Related Data Previous Rx's ?Medication ?Instructions ?Recorded mupirocin 2 % topical ointment 1 appl topical BID 7 days #22 grams 01/25/23 ibuprofen 800 mg tablet 800 mg PO Q8H PRN pain 15 days #45 08/07/23 tabs valacyclovir 500 mg tablet 500 mg PO Q12H PRN skin irritation 09/28/23 7 days #14 tabs nitrofurantoin 100 mg PO Q12H 7 days #14 caps 02/23/24 monohydrate/macrocrystals 100 mg capsule (Macrobid) levothyroxine 25 mcg tablet 25 mcg PO DAILY #90 tabs 05/01/24 Allergies Allergy/AdvReac Type Severity Reaction Status Date / Time No Known Allergies Allergy Unknown NOT Verified 06/21/24 17:54 APPLICABLE Review of Systems Review of Systems: Yes all other systems are reviewed and are negative Neurologic: Denies Sensory deficit (Neuro) [facility] Past Medical History Medical History DVT (deep venous thrombosis) Surgical History Tear of meniscus of right knee Family History Family History Father Diabetes Mother Diabetes Brother No problems noted. Brother No problems noted. Brother No problems noted. Son No problems noted. Daughter No problems noted. Daughter No problems noted. 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 Current occupational exposures/hazards: No Cognitive needs: No Hearing needs: No Vision needs: No Physical Exam Vital Signs: Vital Signs: Last Vital Signs Temp 97.7 F 06/22/24 00:34 Pulse 54 06/22/24 00:34 Resp 14 06/22/24 00:34 BP 109/67 06/22/24 00:34 Pulse Ox 96 06/22/24 00:34 O2 Del Method Room Air 06/22/24 00:34 BMI result Body Mass Index 30.0 Const: General: healthy appearing Nutritional Appearance: average body habitus Orientation/consciousness: oriented to person and patient oriented x3 Limitations: no limitations HEENT: Head: Yes normal to inspection Ears: external ears normal General nose exam: Normal external nose present Mouth: Normal oral and palatal mucosa present and oropharynx normal Throat: Yes posterior oropharynx normal Eyes: General: appearance normal, both eyes and all related structures Neck: Other: supple Neck: Yes normal visual inspection Chest: Chest palpation & inspection: normal inspection of the chest Resp: Auscultation: clear to auscultation bilaterally Cardio: Jugular venous distension: no JVD Rate: regular rate Rhythm: regular rhythm Heart sounds: S1 normal heart sound present and S2 normal heart sound present GI: Inspection: Yes normal to inspection Palpation (GI): Soft to palpation, nontender and No hepatosplenomegaly present Auscultation: normal bowel sounds : General: Yes no CVA tenderness Back/Spine/Pelvis: Back: no CVA tenderness Skin: General skin exam: no rashes or lesions noted Neuro: General: oriented to person and patient oriented x3 Cranial nerves: Yes CN's II-XII intact bilaterally Motor exam (neuro): 5/5 motor strength present throughout Sensory Exam: No Sensory deficit (Neuro) Extrem: General: Yes normal to inspection Psych: Appearance: grossly normal Course Course Course Narrative: RME: 54-year-old female presents to ED for right jaw pain, bilateral chest heaviness right shoulder pain, palpitation, headache, squeezing sensation in upper abdomen around chest around breast. Patient denies any recent long travel or recent surgery. Patient denies any calf pain fever or chills. Neuro exam intact. NIH score is 0. Belly exam benign. No leg swelling or calf pain. Labs EKG chest x-ray ordered. Reevaluation(s) Reevaluation #1: EKG and troponin negative, lfts normal, cxr normal no evidence of active cardiopulmonary process Time: 00:20 Medical Decision Making Differential Diagnosis Differential Diagnoses: The differential diagnosis associated with the presentation includes (cardiac ischemia, biliary colic, gastritis, pneumonia) Admission/Observation Consideration of admission/observation: Escalation of care including admission/observation considered (upon arrival patient was considered for admission) Lab Data 06/21/24 18:12 06/21/24 18:12 Labs: Lab Results 06/21/24 Range/Units 18:12 WBC 6.1 (4.8-10.8) X10*3/uL RBC 4.13 L (4.20-5.50) X10*6/uL Hgb 12.4 (12.0-16.0) g/dl Hct 38.5 (37.0-47.0) % MCV 93.2 (80.0-98.0) fL MCH 30.0 (27.0-33.0) pg MCHC 32.2 (31.0-35.0) g/dl RDW 13.8 (11.0-16.0) % Plt Count 269 (160-400) X10*3/uL MPV 9.2 L (9.4-12.3) fL Immature Gran % (Auto) 0.3 (0.0-0.4) % Neut % (Auto) 53.5 (45-73) % Lymph % (Auto) 35.0 (20-40) % Polk % (Auto) 7.9 (2-11) % Eos % (Auto) 2.6 (0-4) % Baso % (Auto) 0.7 (0-2) % Lymph # (Auto) 2.1 (1.2-4.9) X10*3/uL Polk # (Auto) 0.5 (0.1-1.2) X10*3/uL Eos # (Auto) 0.2 (0.0-0.4) X10*3/uL Baso # (Auto) 0.0 (0.0-0.2) X10*3/uL Abs Immat Gran (auto) 0.02 (0.00-0.03) X10*3/uL Absolute Neuts (auto) 3.3 (2.0-8.3) x10*3/uL Absolute Nucleated RBC 0.000 (0.0-0.012) X10*3/uL Nucleated RBC % (auto) 0.0 (0.0-0.2) /100WBC PT 11.0 (10.9-12.4) SEC INR 0.9 (0.9-1.1) APTT 32.7 (26.0-36.8) SEC Sodium 141 (135-145) mmol/L Potassium 4.7 (3.3-5.1) mmol/L Chloride 104 (96-108) mmol/L Carbon Dioxide 28 (22-29) mmol/L Anion Gap 14 (12-20) BUN 15 (9-16) mg/dL Creatinine 0.87 (0.5-1.4) mg/dL Estim Creat Clear Calc 72.5 Estimated GFR > 60 Random Glucose 102 (60-115) mg/dL Calcium 9.9 (8.4-10.2) mg/dL Magnesium 2.1 (1.6-2.6) mg/dL Total Bilirubin 0.4 (0.0-1.0) mg/dL AST 23 (5-31) U/L ALT 19 (0-31) U/L Alkaline Phosphatase 73 (39-117) U/L Troponin I High Sens < 2.7 (<3.5-17.0) ng/L Total Protein 8.1 H (6.5-8.0) g/dL Albumin 4.5 (3.5-5.0) g/dL Lipase 23 (8-78) U/L Independent Interpretation I performed an independent interpretation of an: EKG (sinus [address] or twave changes) and Plain X-Ray (CXR: no infiltrate) Independent Historian Clinical information obtained from an independent historian. History obtained from or confirmed by: Friend External Record Review External record reviewed: Outpatient record Prescription Management I considered prescription management with: Antibiotic (no evidence of pneumonia on xray) Discharge Plan Discharge Clinical Impression: Atypical chest pain, Acute epigastric pain Patient Disposition: Home, Self-Care Instructions: Chest Pain (ED), Abdominal Pain (ED) Prescriptions: No Action ibuprofen 800 mg tablet 800 mg PO Q8H PRN (Reason: pain) 15 Days Qty: 45 0RF levothyroxine 25 mcg tablet 25 mcg PO DAILY Qty: 90 1RF nitrofurantoin monohyd/m-cryst [Macrobid] 100 mg capsule 100 mg PO Q12H 7 Days Qty: 14 0RF Rx Instructions: must administer with a meal/food mupirocin 2 % ointment 1 appl topical BID 7 Days Qty: 22 0RF valacyclovir 500 mg tablet 500 mg PO Q12H PRN (Reason: skin irritation) 7 Days Qty: 14 0RF Referrals: Yariel Kapoor PA-C [Primary Care Provider] - 3 days Interventions: ED Discharge Assessment Last Done: 06/22/24 00:34 Discharge Date/Time: 06/22/24 00:35 Print Language: Tamazight
[2024-06-21 18:16] LABS: MANUAL DIFF FLAG NO
[2024-06-21 18:22] LABS: INTERNATIONAL NORM RATIO 0.9 (0.9-1.1)
[2024-06-21 18:25] LABS: Partial Thromboplastin Time 32.7 SEC (26.0-36.8)
[2024-06-21 18:26] LABS: Basophils Percent Auto 0.7 % (0-2); Eosinophils Absolute Auto 0.2 X10*3/uL (0.0-0.4); Eosinophils Percent Auto 2.6 % (0-4); Hematocrit 38.5 % (37.0-47.0); Hemoglobin 12.4 g/dl (12.0-16.0); Imm Gran Abs Auto 0.02 X10*3/uL (0.00-0.03); Imm Gran Pct Auto 0.3 % (0.0-0.4); Lymphocytes Absolute Auto 2.1 X10*3/uL (1.2-4.9); Mean Corpuscular HGB Conc 32.2 g/dl (31.0-35.0); Mean Corpuscular Volume 93.2 fL (80.0-98.0); Mean Platelet Volume 9.2 fL (9.4-12.3); Monocytes Absolute Auto 0.5 X10*3/uL (0.1-1.2); Monocytes Percent Auto 7.9 % (2-11); Neutrophils Absolute Auto 3.3 x10*3/uL (2.0-8.3); Neutrophils Percent Auto 53.5 % (45-73); Platelet Count 269 X10*3/uL (160-400); Red Blood Count 4.13 X10*6/uL (4.20-5.50); Red Cell Distribution Width 13.8 % (11.0-16.0); White Blood Count 6.1 X10*3/uL (4.8-10.8)
[2024-06-21 18:35] LABS: Alanine Aminotransferase 19 U/L (0-31); Albumin Level 4.5 g/dL (3.5-5.0); Alkaline Phosphatase 73 U/L (39-117); Anion Gap 14 (12-20); Aspartate Amino Transferase 23 U/L (5-31); Bilirubin Total 0.4 mg/dL (0.0-1.0); Blood Urea Nitrogen 15 mg/dL (9-16); Calcium 9.9 mg/dL (8.4-10.2); Carbon Dioxide 28 mmol/L (22-29); Chloride 104 mmol/L (96-108); Creatinine Clr Calc Pharmacy 72.5; Estimated Glomerular Filt Rate > 60; Glucose Random 102 mg/dL (60-115); Lipase 23 U/L (8-78); Magnesium 2.1 mg/dL (1.6-2.6); Potassium 4.7 mmol/L (3.3-5.1); Sodium 141 mmol/L (135-145); Total Protein 8.1 g/dL (6.5-8.0)
[2024-06-21 18:43] LABS: Troponin-I High Sensitivity < 2.7 ng/L (<3.5-17.0)
[2024-06-21 22:51] VITALS: BP 113/70; PULSE 55; RESP 14; TEMP 36.1; O2SAT 99
--- NOTE | 2024-06-21 23:57 | PC.NURSE ---
provider at bedside, pt skin pink warm and dry. hr low 55
[2024-06-22 00:10] VITALS: BP 109/67; PULSE 54; RESP 14; TEMP 36.5; O2SAT 96
[2024-06-22 00:34] VITALS: BP 109/67; PULSE 54; RESP 14; TEMP 36.5; O2SAT 96
== END 2024-06-22 00:35 | disposition home or self-care (01) ==
PROVIDERS: Physician Assistant; Emergency Provider Emergency Medicine; PCP Physician Assistant
DX: R07.89 Other chest pain (principal); R10.13 Epigastric pain; R68.84 Jaw pain; I82.409 Acute embolism and thrombosis of unspecified deep veins of unspecified lower extremity; M25.511 Pain in right shoulder; R00.2 Palpitations; R51.9 Headache, unspecified; Z79.899 Other long term (current) drug therapy
CPT/HCPCS: 36415; 71045; 80053; 83690; 83735; 84484; 85025; 85610; 85730; 93005; 99283; 99285

== ENCOUNTER → 2024-06-21 18:00 | Outpatient (BNV) | payer BC, SELFPAY | PROVIDERS: Emergency Provider Emergency Medicine; PCP Physician Assistant; Visit Provider Internal Medicine | DX: R07.9 Chest pain, unspecified (principal); R94.31 Abnormal electrocardiogram [ECG] [EKG] | CPT/HCPCS: 93010 ==

== ENCOUNTER 2024-07-05 07:47 | Outpatient (AMB) | payer BC, SELFPAY ==
[2024-07-05 08:14] VITALS: BP 112/58; PULSE 57; O2SAT 98; BMI 29.6
--- NOTE | 2024-07-05 08:14 | A.OFFPC_ITS ---
Vital Signs 07/05/24 08:14 Height 5 ft 3 in Weight 167 lb BMI 29.6 BP 112/58 L Blood Pressure Location Lt brachial Position Sitting Pulse 57 Pulse Source Pulse Oximeter Pulse Oximetry (%) 98 Oxygen Delivery Method Room Air Intake Visit Reasons: [facility] 06/21 Chest discomfort Allergies No Known Allergies Allergy (Unknown, Verified 07/05/24 08:15) NOT APPLICABLE Tobacco use date assessed: 09/28/23 Dental Screening Dental Screen Date: 09/28/23 HPI HPI Comments History of Present Illness Details 54 y/o female patient who presents to [facility] today for HDF. Patient was admitted at [facility] on 06/21/24 for Atypical chest pains and discharged home the same day. Labs/EKG/Troponin negative. CXR negative. Pt wants to f/u with Cardiology - she has a PPO and wants to self schedule with Cardiology [facility]. Today denies CP, SOB or headaches. [facility] Medical History DVT (deep venous thrombosis) Surgical History Tear of meniscus of right knee Family History Father Diabetes Mother Diabetes Brother No problems noted. Brother No problems noted. Brother No problems noted. Son No problems noted. Daughter No problems noted. Daughter No problems noted. 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 1. Little interest or pleasure in doing things: not at all 2. Feeling down, depressed, or hopeless: not at all 3. Trouble falling or staying asleep, or sleeping too much: not at all 4. Feeling tired or having little energy: not at all 5. Poor appetite or overeating: not at all 6. Feeling bad about yourself - or that you are a failure or have let yourself or your family down: not at all 7. Trouble concentrating on things, such as reading the newspaper or watching television: not at all 8. Moving or speaking so slowly that other people could have noticed. Or the opposite - being so fidgety or restless that you have been moving around a lot more than usual: not at all 9. Thoughts that you would be better off or of hurting yourself in some w ay: not at all Total score: 0 Depression Screening Interpretation: Negative Depression Screening Done: Yes 55996 - PHQ-9 Billing: Yes Source: Developed by Drs. Delfin Velez, Justa Vaughan, Fahad Solorzano and colleagues, with an educational sylvain from [employer]. Thrive Questionnaire Date Thrive assessed: 09/28/23 AUDIT C Alcohol Use Questionnaire (AUDIT-C) 1. How often do you have a drink containing alcohol?: Monthly or less 2. How many drinks containing alcohol do you have on a typical day when you are drinking?: 1 or 2 Total Score: 1 INES-7 AMB Questionnaire INES-7 Date INES - 7 assessed: 09/28/23 Source: Developed by Drs. Delfin Velez, Justa Vaughan, Fahad Solorzano and colleagues, with an educational sylvain from [employer]. Review of Systems Const All systems reviewed & are unremarkable except as noted in HPI and below Physical exam (Primary Care) Vital Signs: Last Vital Signs Pulse 57 07/05/24 08:14 BP 112/58 L 07/05/24 08:14 Pulse Ox 98 07/05/24 08:14 Oxygen Delivery Method Room Air 07/05/24 08:14 BMI result Body Mass Index 29.6 Tobacco/Smoking Status: Tobacco use Status Tobacco use date assessed 09/28/23 07/05/24 08:17 Patient Tobacco Use Status Never used Tobacco 07/05/24 08:17 Tobacco use type Cigarette 07/05/24 08:17 e-Cigarette/Vaping Use Never Used 07/05/24 08:17 PHQ-9: PHQ-9 Score PHQ-9: Total score 0 07/05/24 08:24 Depression Screening Interpretation: Negative Thrive Assessment: Date of Thrive Assessment Date Thrive assessed 09/28/23 07/05/24 08:17 Const General: cooperative and no acute distress Nutritional Appearance: overweight Orientation/consciousness: patient oriented x3 Resp Effort & Inspection: normal respiratory effort and able to speak in complete sentences Auscultation: clear to auscultation bilaterally Cardio Heart sounds: S1 normal heart sound present and S2 normal heart sound present Neuro General: patient oriented x3, gait normal and moves all extremities Psych Speech and movement: Normal speech and movement present Coding Level of Care Code Est Pt Level 4 (60055) Diagnoses Atypical chest pain R07.89 Additional Codes PHQ-9 - 09372 - PHQ-9 Billing: Yes ([id number]) Time Spent (min) 20 Comment Spent reviewing hospital notes and labs Assessment & Plan Assessment & Plan (1) Atypical chest pain: Code(s): R07.89 - Other chest pain Plan: Pt will self schedule with Cardiology for f/u appointment. She has PPO insurance and does not require PCP referral.
== END 2024-07-05 08:34 | disposition home or self-care (01) ==
PROVIDERS: PCP Physician Assistant; Visit Provider Nurse Practitioner Family
DX: R07.89 Other chest pain (principal)

== ENCOUNTER → 2024-07-05 07:47 | Outpatient (BNVA) | payer BC, SELFPAY | PROVIDERS: PCP Physician Assistant; Visit Provider Nurse Practitioner Family | DX: R07.89 Other chest pain (principal) | CPT/HCPCS: 96127 ==

== ENCOUNTER 2024-08-22 07:29 | Outpatient (REF) | payer BC, SELFPAY | END 2024-08-22 07:30 | disposition home or self-care (01) | LOC: HO.MAMMO 07:29 | PROVIDERS: PCP Physician Assistant; Visit Provider Physician Assistant | DX: Z12.31 Encounter for screening mammogram for malignant neoplasm of breast (principal) | CPT/HCPCS: 77063; 77067 ==

== ENCOUNTER → 2024-08-22 07:30 | Outpatient (BNV) | payer BC, SELFPAY | PROVIDERS: PCP Physician Assistant; Visit Provider Internal Medicine | DX: Z12.31 Encounter for screening mammogram for malignant neoplasm of breast (principal) | CPT/HCPCS: 77063; 77067 ==

== ENCOUNTER 2024-11-23 09:04 | Outpatient (REF) | payer BC, SELFPAY ==
[2024-11-23 10:56] LABS: Hematocrit 37.2 % (37.0-47.0); Hemoglobin 11.9 g/dl (12.0-16.0); Mean Corpuscular Hemoglobin 29.9 pg (27.0-33.0); Mean Corpuscular Volume 93.5 fL (80.0-98.0); Mean Platelet Volume 10.1 fL (9.4-12.3); Platelet Count 248 X10*3/uL (160-400); Red Blood Count 3.98 X10*6/uL (4.20-5.50); Red Cell Distribution Width 14.3 % (11.0-16.0); White Blood Count 5.5 X10*3/uL (4.8-10.8)
[2024-11-23 11:37] LABS: Alanine Aminotransferase 14 U/L (0-31); Albumin Level 4.4 g/dL (3.5-5.0); Alkaline Phosphatase 77 U/L (39-117); Anion Gap 11 (12-20); Aspartate Amino Transferase 20 U/L (5-31); Bilirubin Total 0.5 mg/dL (0.0-1.0); Blood Urea Nitrogen 18 mg/dL (9-16); Calcium 9.5 mg/dL (8.4-10.2); Carbon Dioxide 29 mmol/L (22-29); Chloride 108 mmol/L (96-108); Estimated Glomerular Filt Rate > 60; Glucose Fasting 95 mg/dL (60-99); Iron 96 mcg/dL (30-160); Percent Iron Saturation 32 % (15-50); Potassium 4.7 mmol/L (3.3-5.1); Sodium 143 mmol/L (135-145); Total Iron Binding Capacity 299 mcg/dL (228-428); Total Protein 7.7 g/dL (6.5-8.0); Unsaturated Iron Binding 203 ug/dL
[2024-11-23 12:03] LABS: Folate 10.8 ng/mL (> or = 4.0); Vitamin B12 521 pg/mL (200-900)
== END 2024-11-23 09:05 | disposition home or self-care (01) ==
LOC: HO.LAB 09:04
PROVIDERS: PCP Physician Assistant; Visit Provider Physician Assistant
DX: Z00.01 Encounter for general adult medical examination with abnormal findings (principal); E03.9 Hypothyroidism, unspecified; E53.8 Deficiency of other specified B group vitamins; D50.9 Iron deficiency anemia, unspecified; M25.541 Pain in joints of right hand; B00.9 Herpesviral infection, unspecified
CPT/HCPCS: 36415; 80053; 82607; 82746; 83540; 84443; 85027; 96127

== ENCOUNTER 2024-11-23 09:04 | Outpatient (AMB) | payer BC, SELFPAY ==
[2024-11-23 09:06] VITALS: BP 100/68; PULSE 60; RESP 18; TEMP 36.3; O2SAT 98; BMI 29.5
--- NOTE | 2024-11-23 09:06 | A.OFFPC_ITS ---
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 Accompanied by: Self / Same As Patient Allergies No Known Allergies Allergy (Unknown, Verified 11/23/24 09:21) NOT APPLICABLE Medication List - Last Reconciled 11/23/24 by Yariel Kapoor PA-C ibuprofen 800 mg PO Q8H PRN 15 days levothyroxine 25 mcg PO DAILY valacyclovir (Valtrex) 1,000 mg PO BID Tobacco use date assessed: 11/23/24 Dental Screening Dental Screen Date: 11/23/24 Did you have a dental visit in the last 12 months?: Yes Did you have a dental problem in the last 6 months where you did not have access to dental care?: No Was dental information given to patient?: Patient has dentist HPI PE HPI Details Patient is? 54 year year old female here today for routine annual physical. Patient does have history of a provoked DVT right lower calf, hypothyroidism, Concerns--> She describes intermittent pain at the bra strap level, which led to an ER visit without significant discovery. A similar episode recently surfaced but resolved spontaneously. She has achieved significant weight transformation, potentially due to stress and increased activity, despite low blood pressure readings. Also Pat expresses concern over hand swelling and discomfort at the base of the thumb with repetitive motion. Occasional knee pain, attributed to previous surgery, is also reported, corresponding with her high activity level. Hypothyroid: Has been found to have an elevated TSH in 2021. Continues on levothyroxine 25 mcg. Will recheck TSH to assure normal and make live of thyroxine dose adjustments. Vaccines: UTD with COVID Vac,? 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 Brother No problems noted. Brother No problems noted. Son No problems noted. Daughter No problems noted. Daughter No problems noted. Social History Housing: House Alcohol intake: current Alcohol intake frequency: holidays/special occasions only Alcohol type: beer Patient Tobacco Use Status: Never used Tobacco Tobacco use type: Cigarette e-Cigarette/Vaping Use: Never Used Second Hand Smoke Exposure: No service: No Current occupational status: employed Current occupation: [employer] Current occupational exposures/hazards: No Cognitive needs: No Hearing needs: No Vision needs: No Female Reproductive History Menstrual Age of Menarche: 13 Questionnaire PHQ-9 Over the last 2 weeks, how often have you been bothered by any of the following problems? 1. Little interest or pleasure in doing things: not at all 2. Feeling down, depressed, or hopeless: not at all 3. Trouble falling or staying asleep, or sleeping too much: not at all 4. Feeling tired or having little energy: not at all 5. Poor appetite or overeating: not at all 6. Feeling bad about yourself - or that you are a failure or have let yourself or your family down: not at all 7. Trouble concentrating on things, such as reading the newspaper or watching television: not at all 8. Moving or speaking so slowly that other people could have noticed. Or the opposite - being so fidgety or restless that you have been moving around a lot more than usual: not at all 9. Thoughts that you would be better off or of hurting yourself in some way: not at all Total score: 0 Depression Screening Interpretation: Negative Depression Screening Done: Yes 96119 - PHQ-9 Billing: Yes Source: Developed by Drs. Delfin Velez, Justa Vaughan, Fahad Solorzano and colleagues, with an educational sylvain from [employer] Thrive Questionnaire Date Thrive assessed: 11/23/24 I am a: Patient What is your living situation today?: I have a steady place to live Within the past 12 months, did the food you bought not last and you didn't have the money to get more?: Never true Within the past 12 months, did you worry whether your food would run out before you got money to buy more?: Never true Do you have trouble paying for medicines?: No Do you have trouble getting transportation to medical appointments?: No Do you have trouble paying your heating and electricity bill?: No Do you have trouble taking care of your child, family member or friend?: No Do you have trouble with day-to-day activities such as bathing, preparing meals, shopping, managing finances, etc.?: No Are you currently unemployed and looking for a job?: No Are you interested in more education?: No Please select the resources that you would like help with: None Currently or been in a relationship where the following occur: I choose not to answer THRIVE Score: 0 AUDIT C Alcohol Use Questionnaire (AUDIT-C) 1. How often do you have a drink containing alcohol?: 2-3 times a week 2. How many drinks containing alcohol do you have on a typical day when you are drinking?: 1 or 2 3. How often do you have six or more drinks on one occasion?: Never Total Score: 3 INES-7 AMB Questionnaire INES-7 Date INES - 7 assessed: 11/23/24 Feeling nervous, anxious, or on edge: 0 = Not at all Not being able to stop or control worryin = Not at all Worrying too much about different things: 0 = Not at all Trouble relaxin = Not at all Being so restless that it is hard to sit still: 0 = Not at all Becoming easily annoyed or irritable: 0 = Not at all Feeling afraid as if something awful might happen: 0 = Not at all Total INES-7 score (0-4 normal; 5-9 mild; 10-14 moderate; 15-21 severe): 0 Source: Developed by Drs. Delfin Velez, Justa Vaughan, Fahad Solorzano and colleagues, with an educational sylvain from [employer] INES-7 Assessment Billing INES-7 Assessment Tool: INES-7 Assessment 31326 Review of Systems Const Denies body aches, Denies chills, Denies excessive sweating, Denies fatigue, Denies fever(s) and Denies headache(s) Eyes Denies blurry vision ENT Denies dysphagia, Denies vertigo, Denies dizziness, Denies headache(s), Denies hearing loss and Denies tinnitus Card Denies chest pain, Denies chest pain with activity, Denies syncope, Denies irregular heart rhythm and Denies dyspnea Resp Denies chest congestion, Denies cough, Denies hemoptysis, Denies dyspnea and Denies wheezing GI Denies abdominal pain, Denies melena, Denies hematochezia, Denies coffee ground emesis, Denies dysphagia, Denies diarrhea, Denies nausea and Denies vomiting Denies urinary frequency, Denies dysuria, Denies urinary hesitancy and Denies urinary urgency Musc Denies arthralgias, Denies limited range of motion, Denies muscle cramps and Denies muscle weakness Skin/Breast Denies rash and Denies skin ulcer Neuro Denies Abnormal speech present, Denies confusion, Denies vertigo, Denies dizziness, Denies syncope, Denies headache(s), Denies memory loss and Denies seizure-like activity Psych Denies anxiety, Denies confusion, Denies depression, Denies memory loss, Denies panic attacks and Denies paranoia Endo Denies excessive sweating, Denies fatigue, Denies flushing, Denies polydipsia and Denies polyuria Aller/Immun Denies wheezing Physical exam (Primary Care) Vital Signs: Last Vital Signs Temp 97.3 F 11/23/24 09:06 Pulse 60 11/23/24 09:06 Resp 18 11/23/24 09:06 BP 100/68 11/23/24 09:06 Pulse Ox 98 11/23/24 09:06 Oxygen Delivery Method Room Air 11/23/24 09:06 BMI result Body Mass Index 29.5 Tobacco/Smoking Status: Tobacco use Status Tobacco use date assessed 11/23/24 11/23/24 09:15 Patient Tobacco Use Status Never used Tobacco 11/23/24 09:15 Tobacco use type Cigarette 11/23/24 09:15 e-Cigarette/Vaping Use Never Used 11/23/24 09:15 PHQ-9: PHQ-9 Score PHQ-9: Total score 0 11/23/24 09:15 Depression Screening Interpretation: Negative Thrive Assessment: Date of Thrive Assessment Date Thrive assessed 11/23/24 11/23/24 09:15 Currently or been in a relationship where the following occur: I choose not to answer Const General: cooperative, comfortable, no acute distress, alert and awake; No confusion Orientation/consciousness: oriented to person, oriented to place, patient oriented x3 and No confusion HENMT Head: Yes normocephalic Ears: external ears normal and TM's normal bilaterally Face and sinus: No sinus tenderness Mouth: Normal oral and palatal mucosa present and tongue normal Teeth and gingiva: dentition normal and gingiva normal Throat: Yes posterior oropharynx normal, Yes tonsils normal and Yes uvula midline Eyes Conjunctivae: conjunctivae normal Sclerae: sclerae normal Pupils: Equal, round and reactive pupils present EOM: EOMs intact bilaterally Direct Ophthalmoscopy: No no photophobia Neck Neck: Yes no lymphadenopathy, No tender and Yes no JVD Thyroid: Thyroid normal Carotids: no bruits Chest Chest palpation & inspection: no tenderness Resp Effort & Inspection: normal respiratory effort, no audible wheezes, not labored and no stridor Auscultation: no crackles, no rales, no rhonchi and no wheezes Cardio Jugular venous distension: no JVD Rate: regular rate, not bradycardic and not tachycardic Rhythm: regular rhythm Bruits: no carotid bruits Peripheral pulses: Peripheral pulses 2+ throughout GI Inspection: Yes normal to inspection, No abdominal wall ecchymosis and No visibl e herniation Palpation (GI): Soft to palpation, nontender, no guarding, not rigid and No hepatosplenomegaly present Auscultation: normoactive bowel sounds General: Yes no CVA tenderness Back/Spine/Pelvis Back: no CVA tenderness and No back tenderness Cervical Spine: cervical ROM normal Thoracic/Lumbar Spine: thoracic and lumbar spine normal to inspection, straight leg raise negative bilaterally, No thoraco-lumbar ROM limited and No lumbar spinal tenderness Skin Lesions: no lesions Rashes: no rashes Wounds: no wounds Neuro General: oriented to person, oriented to place, patient oriented x3, CN's II-XI intact bilaterally and No confusion Cranial nerves: Yes Equal, round and reactive pupils present and Yes Normal accommodation reflex present Cognition (Neuro): normal cognition Speech: No Abnormal speech present Gait exam (Neuro): Normal gait present Motor exam (neuro): 5/5 motor strength present throughout Extrem Other: RIGHT HAND JOINT SWELLING NOTED. Right upper extremity: full ROM; no cyanosis Left upper extremity: full ROM; no cyanosis Right lower extremity: no edema Left lower extremity: no edema Psych Appearance: grossly normal Mental Status: mental status grossly normal Affect: normal affect Attitude: cooperative Thought process: Normal thought process present Coding Level of Care Code Est Pt Prev Care 40-64y(79656) Diagnoses Annual physical exam Z00.00 Arthralgia of right hand M25.541 Hypothyroidism, unspecified type E03.9 Hypothyroidism type: unspecified Herpes simplex B00.9 Additional Codes INES-7 Assessment Billing - INES-7 Assessment Tool: INES-7 Assessment 93157 ([id number]) PHQ-9 - 69318 - PHQ-9 Billing: Yes ([id number]) Assessment & Plan Assessment & Plan (1) Annual physical exam: Code(s): Z00.00 - Encounter for general adult medical examination without abnormal f indings Category: Medical Plan: As per HPI (2) Arthralgia of right hand: Code(s): M25.541 - Pain in joints of right hand Category: Medical Plan: Advised patient to try topical diclofenac on her hand. Her joint swelling likely secondary to overuse injuries and arthritis. (3) Hypothyroid: Code(s): E03.9 - Hypothyroidism, unspecified Category: Medical Qualifiers: Hypothyroidism type: unspecified Qualified Code(s): E03.9 - Hypothyroidism, unspecified Plan: Patient continues on levothyroxine 25 mcg. Most recent TSH stable. Will continue to follow TSH to assure normal. (4) Herpes simplex: Code(s): B00.9 - Herpesviral infection, unspecified Category: Medical Plan: Patient does have recurrent lip manifestations particularly in the summer and cold winter months. She does use Valtrex which does resolve her symptoms quickly Medications: Changed From valacyclovir (Valtrex) 1,000 mg PO BID B00.9 - Herpesviral infection, unspecified To valacyclovir (Valtrex) 1,000 mg PO BID 7 days 14 tabs 0RF B00.9 - Herpesviral infection, unspecified
== END 2024-11-23 09:53 | disposition home or self-care (01) ==
LOC: HO.HMCH 09:04
PROVIDERS: PCP Physician Assistant; Visit Provider Physician Assistant
DX: Z00.00 Encounter for general adult medical examination without abnormal findings (principal); M25.541 Pain in joints of right hand; E03.9 Hypothyroidism, unspecified; B00.9 Herpesviral infection, unspecified

== ENCOUNTER 2025-05-10 09:39 | Outpatient (REF) | payer BC, SELFPAY ==
[2025-05-10 11:13] LABS: Appearance Urine Clear; Glucose Urine UA Negative (Negative); PH 8.0 (5.0-9.0); Specific Gravity - Urine 1.015 (1.005-1.025); UMIC TRIGGER UACC YES
--- OUTSIDE RECORDS SUMMARY | 2025-05-10 11:18 | XMS_ITS | Patient Health Record ---
Author Organization [facility] Address [address] [place] [address] Care Team Providers Care Independent Driver Name Role Phone Kehinde Ford MD Primary Care Provider Unavailab Jovanni Barron Unavailable [phone] Reason For Referral No Information Medications Medication SIG (Take, Route, Frequency, Duration) Notes Start Date End Date Status Tri-Sprintec 0.18/0.215/0.25 MG-35 MCG 1 tablet Orally Once a day; Duration: 28 day(s) Not-Marcos ing Social History Tobacco Use: Social History Observation Description Date Details (start date - stop date) Never Smoker NA - NA Tobacco Use/Smoking Question Answer Notes Are you a: nonsmoker Additional Findings: Tobacco Non-User Current no n-smoker Alcohol Screen Question Answer Notes Did you have a drink containing alcohol in the p ast year? Yes Points 0 Interpretation Negative Tobacco use other than smoking: Question Answer Notes Are you an other tobacco user? No Problems Problem Type SNOMED Code ICD Code Onset Dates Problem Status W/U Status Risk Notes Problem Acquired hallux valgus (82577665) Hallux valgus (acquired), left foot (M20.12) Active confirmed Problem Acquired hallux valgus (84935623) Hallux valgus (acquired), right foot (M20.11) Active confirmed Problem Acquired hammer toe of right foot (1144525764129 105) Other hammer toe(s) (acquired), right foot (M20.41) Active confirmed Problem Acquired hammer toe of left foot (1986209513255 103) Other hammer toe(s) (acquired), left foot (M20.42) Active confirmed Plan Of Treatment Pending Test Test Name Order Date X ray : Foot, right 3V 12/04/2011 [id number] SKIN LESIONS, 2 TO 4 12/04/19 12 Insurance Providers Payer Name Payer Address Payer Phone Subscriber Number Group Number Insured Name Patient Relationship to Insured Coverage Start Date Coverage End Date [facility] [address] [place] [address] [id number] Pat Meyer Self - patient is the insured Medical (General) History Medical History History ICD Code hepatitis B chicken pox Warts Surgical History Surgery Date(Month/Year) Meniscus repair- complication: blood orion t 2013
[2025-05-10 11:21] LABS: UACC Culture Trigger YES
== END 2025-05-10 09:40 | disposition home or self-care (01) ==
LOC: HO.LAB 09:39
PROVIDERS: PCP Physician Assistant; Visit Provider Nurse Practitioner Family
DX: R30.0 Dysuria (principal)
CPT/HCPCS: 81001; 81003; 87086

== ENCOUNTER 2025-08-22 07:48 | Outpatient (AMB) | payer BC, SELFPAY ==
--- OUTSIDE RECORDS SUMMARY | 2025-08-22 07:50 | XMS_ITS | Patient Health Record ---
Author Organization [facility] Address [address] [place] [address] Care Team Providers Care In Home Baby Sitter Name Role Phone Kehinde Ford MD Primary Care Provider Unavailab noris Rohitjosekitty Jovanni Unavailable [phone] Reason For Referral No Information Medications Medication [...] Status Risk Notes Problem Acquired hallux valgus (10075398) Hallux valgus (acquired), left foot (M20.12) Active confirmed Problem Acquired hallux valgus (74751187) Hallux valgus (acquired), right foot (M20.11) Active confirmed Problem Acquired hammer toe of right foot (5448642011059 105) Other hammer toe(s) (acquired), right foot (M20.41) Active confirmed Problem Acquired hammer toe of left foot (1183674437661 103) Other hammer toe(s) (acquired), left foot (M20.42) Active confirmed Plan Of Treatment Pending Test Test Name Order Date X ray : Foot, right 3V 12/04/2011 [id number] SKIN LESIONS, 2 TO 4 12/04/19 12 Insurance Providers Payer Name Payer Address Payer Phone Subscriber Number Group Number Insured Name Patient Relationship to Insured Coverage Start Date Coverage End Date [employer] All Others [address] [place] [address] [id number] Pat Meyer Self - patient is the insured Medical (General) History Medical History History ICD Code hepatitis B chicken pox Warts Surgical History Surgery Date(Month/Year) Meniscus repair- complication: blood orion t 2014
--- NOTE | 2025-08-22 07:51 | A.OFFPC_ITS ---
Vital Signs 08/22/25 07:52 Height 5 ft 3 in Weight 141 lb 4 oz BMI 25.0 BP 94/64 Blood Pressure Location Lt brachial Position Sitting Respiration 16 Pulse 76 Pulse Source Pulse Oximeter Temp 98.1 F Temp Source Temporal Artery Scan Pulse Oximetry (%) 99 Oxygen Delivery Method Room Air Intake Visit Reasons: Pain in tailbone/left ear Intake Note: Passed out 08/13/25 at home. Hurt tailbone and ear. Aba Tutor Required: No Accompanied by: Self / Same As Patient Allergies No Known Allergies Allergy (Unknown, Verified 08/22/25 08:17) NOT APPLICABLE Medication List - Last Reconciled 08/22/25 by Neftaly Avalos MD ibuprofen 800 mg PO Q8H PRN 15 days levothyroxine 25 mcg PO DAILY valacyclovir (Valtrex) 1,000 mg PO BID 7 days Tobacco use date assessed: 11/23/24 Dental Screening Dental Screen Date: 11/23/24 HPI HPI Comments History of Present Illness Details History of Present Illness - The patient is a 55-year-old female pr esenting for evaluation of a fall that occurred one week prior. - She reports getting out of bed at 11 p .m., feeling unwell, and then falling backward onto a hardwood floor, hitting her back. - She does not recall the fall itself bu t woke up on the ground and denies urinary incontinence. - Following the fall, she noted a small lump on her head but denies any blurred vision or headaches. - Her primary complaint is persistent pa in in her coccyx, which has improved slightly but is still present. - The pain is exacerbated by bowel movem ents and getting in and out of a car. - She also reports a new, slight popping noise in her left ear since the fall but denies any ear pain. - The patient acknowledges that she typi aisha sits up for a moment before standing to avoid dizziness but did not do so at the time of the incident. 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 Results [facility] Medical History DVT (deep venous thrombosis) Surgical History Tear of meniscus of right knee Family History Father Diabetes Mother Diabetes Brother No problems noted. Brother No problems noted. Brother No problems noted. Son No problems noted. Daughter No problems noted. Daughter No problems noted. Social History Housing: House Alcohol intake: current Alcohol intake frequency: holidays/special occasions only Alcohol type: beer Patient Tobacco Use Status: Never used Tobacco Tobacco use type: Cigarette e-Cigarette/Vaping Use: Never Used Second Hand Smoke Exposure: No service: No Current occupational status: employed Current occupation: [employer] Current occupational exposures/hazards: No Cognitive needs: No Hearing needs: No Vision needs: No Female Reproductive History Menstrual Age of Menarche: 13 Questionnaire Thrive Questionnaire Date Thrive assessed: 11/23/24 What is your living situation today?: I have a steady place to live Within the past 12 months, did the food you bought not last and you didn't have the money to get more?: Never true Within the past 12 months, did you worry whether your food would run out before you got money to buy more?: Never true Do you have trouble paying for medicines?: No Do you have trouble getting transportation to medical appointments?: No Do you have trouble paying your heating and electricity bill?: No Do you have trouble taking care of your child, family member or friend?: No Do you have trouble with day-to-day activities such as bathing, preparing meals, shopping, managing finances, etc.?: No Are you currently unemployed and looking for a job?: No Are you interested in more education?: No Currently or been in a relationship where the following occur: I choose not to answer THRIVE Score: 0 INES-7 AMB Questionnaire INES-7 Date INES - 7 assessed: 11/23/24 Source: Developed by Drs. Delfin Velez, Justa Vaughan, Fahad Solorzano and colleagues, with an educational sylvain from [employer] Review of Systems Narrative Review of Systems - Constitutional: Denies headache. - Neurological: Reports a syncopal episode one week ago. Denies dizziness during daily activities. - Eyes: Denies blurred vision. - ENT: Reports a popping noise in the left ear with head movement. Denies ear pain. - Genitourinary: Denies urinary incontinence during syncopal event. - Musculoskeletal: Reports pain in the coccyx region, which is worse with bowel movements and when getting in and out of a car. Physical exam (Primary Care) Vital Signs: Last Vital Signs Temp 98.1 F 08/22/25 07:52 Pulse 76 08/22/25 07:52 Resp 16 08/22/25 07:52 BP 94/64 08/22/25 07:52 Pulse Ox 99 08/22/25 07:52 Oxygen Delivery Method Room Air 08/22/25 07:52 BMI result Body Mass Index 25.0 Tobacco/Smoking Status: Tobacco use Status Tobacco use date assessed 11/23/24 08/22/25 08:01 Patient Tobacco Use Status Never used Tobacco 08/22/25 08:01 Tobacco use type Cigarette 08/22/25 08:01 e-Cigarette/Vaping Use Never Used 08/22/25 08:01 Thrive Assessment: Date of Thrive Assessment Date Thrive assessed 11/23/24 08/22/25 08:01 Currently or been in a relationship where the following occur: I choose not to answer Narrative Physical Exam General: Appearance normal, both eyes and all related structures Nutritional Appearance: Well nourished Orientation/consciousness: Patient oriented x3 Limitations: Pain in the coccyx area, discomfort when sitting Head: Normal to inspection, slight lump noted, no blurred vision or headache Neck: Normal visual inspection Chest: Normal palpation of entire chest wall Respiratory: Normal respiratory effort Neurology: Patient oriented x3, syncope episode noted with no current issues Coding Level of Care Code Est Pt Level 4 (31231) Add On Problem Visit Only Diagnoses Contusion of sacrum S30.0XXA Assessment & Plan Assessment & Plan (1) Contusion of sacrum: Code(s): S30.0XXA - Contusion of lower back and pelvis, initial encounter Plan Plan - An X-ray of the tailbone will be obtained to rule out a fracture. - For coccyx pain, advised the patient to use a donut pillow to alleviate pressure when sitting. - Recommended [id number] Motrin for pain and inflammation. - The syncopal event was attributed to a transient drop in blood pressure and requires no further workup at this time as the patient is otherwise asympt omatic. - For the left ear popping, which is likely musculoskeletal, advised Motrin for discomfort and to return for follow-up in one month if symptoms persist. Discussion Notes I explained to the patient that her passing out episode was likely a case of syncope due to a temporary drop in blood pressure, and since her vitals are now normal, it is not a major concern. I discussed that her coccyx pain is due to a contusion from the fall, and while a fracture is unlikely, I am ordering an X- ray to be certain. Regarding her left ear, I explained that the exam was normal and the popping sensation is likely due to muscle tightness from the fall, which should improve with Motrin. I advised her to use a donut pillow for sitting and to take [id number] anti-inflammatories. I instructed her that she could get the X-ray immediately after our visit and to follow up in a month if her ear symptoms do not resolve. Patient Instructions - Please go for an X-ray of your tailbone. You can go to the imaging center across the way after this visit. - Use a donut-shaped pillow when you sit to help relieve pressure on your tailbone. - You may take [id number] Motrin (ibuprofen) as needed for pain. - Be careful when changing positions quickly, such as getting up from bed, as your blood pressure can sometimes drop. - If the popping noise in your ear continues to bother you in a month, please schedule a follow-up appointment. Orders: Orders XR sacrum coccyx min 2V Today S30.0XXA - Contusion of lower back and pelvis, initial encounter
[2025-08-22 07:52] VITALS: BP 94/64; PULSE 76; RESP 16; TEMP 36.7; O2SAT 99; BMI 25.0
== END 2025-08-22 12:31 | disposition home or self-care (01) ==
LOC: HO.HMCH 07:48
PROVIDERS: Visit Provider Internal Medicine
DX: S30.0XXA Contusion of lower back and pelvis, initial encounter (principal)

== ENCOUNTER → 2025-08-22 08:39 | Outpatient (BNV) | payer BC, SELFPAY | PROVIDERS: Absent Provider Physician Assistant; PCP Physician Assistant; Visit Provider Radiology Diagnostic Radiology | DX: M53.3 Sacrococcygeal disorders, not elsewhere classified (principal) | CPT/HCPCS: 72220 ==